=== PATIENT | male | born 1955 | race Caucasian/White ===

== ENCOUNTER 2023-11-30 12:04 | Inpatient (IN) | payer OTHER, MEDICARE ==
[~2023-11-30] VITALS: Ht 177.8 cm; Wt 86.6 kg
[2023-11-30] VITALS (41 sets, daily range): BP systolic 110–174; BP diastolic 46–131; PULSE 52–70; RESP 8–16; TEMP 97.5–97.7
[~2023-11-30 12:04] MED LIST: ALBUTEROL INH; AUGMENTIN PO; BENA10TA PO; LANTUSUD SUBCUT; P20 PO
[2023-11-30] MEDS ORDERED: CLONIDINE 0.2MG TABLET PO ONE (12:30)
[2023-11-30] MEDS: CLONIDINE 0.1MG TABLET PO SCH (12:36)
[2023-11-30 12:40] LABS: BASOPHILS % 0.7 % (0.0-2.0); EOSINOPHILS % 2.5 % (0.0-5.0); HEMATOCRIT. 41.3 % (42.0-52.0); HEMOGLOBIN. 14.3 g/dL (14.0-18.0); LYMPHOCYTES % 22.6 % (20.0-50.0); MEAN CORPUSCULAR HEMOGLOBIN 29.8 pg (28.0-32.0); MEAN CORPUSCULAR HGB CONC 34.5 g/dL (31.0-37.0); MEAN CORPUSCULAR VOLUME 86.4 fL (80.0-94.0); MEAN PLATELET VOLUME 7.2 fl (7.4-10.4); MONOCYTES % 5.1 % (2.0-8.0); NEUTROPHILS % 69.1 % (40.0-76.0); PLATELET 247 x1000/uL (130-400); RED BLOOD CELL COUNT 4.78 mill/uL (4.7-6.1); RED CELL DISTRIBUTION WIDTH 13.6 % (11.6-14.6); WHITE BLOOD COUNT 7.8 x1000/uL (4.5-11.0)
[2023-11-30 12:50] LABS: INR 0.9; PARTIAL THROMBOPLASTIN TIME 26.9 sec (23.4-31.0)
[2023-11-30 13:06] LABS: ALANINE AMINOTRANSFERASE 8 IU/L (10-49); ALBUMIN 4.5 g/dL (3.2-4.8); ASPARTATE AMINOTRANSFERASE 13 IU/L (<34); BILIRUBIN TOTAL 0.5 mg/dL (0.1-1.0); CALCIUM 9.1 mg/dL (8.7-10.4); CARBON DIOXIDE 30 mEq/L (21-32); CHLORIDE 104 mEq/L (98-107); CREATININE 1.9 mg/dL (0.6-1.3); GLUCOSE 292 mg/dL (70-105); PROTEIN TOTAL 7.9 g/dL (6.0-8.3); SODIUM 138 mEq/L (136-145); UREA NITROGEN BLOOD 26 mg/dL (9-23)
[2023-11-30 13:13] LABS: TROPONIN I HIGH SENSITIVITY 58 ng/L (3.0-53)
[2023-11-30 14:01] LABS: BETA HYDROXYBUTYRATE 0.5 mMol/L (0.0-0.3)
[2023-11-30] MEDS ORDERED: NICARDIPINE 100 MG in SODIUM CHLORIDE 0.9% 60 ML IV STA (14:13)
[2023-11-30] MEDS: LEVETIRACETAM 500MG PREMIX 100 ML IV ONE (14:23)
[2023-11-30] MEDS: DEXAMETHASONE 10 MG/ML VIAL IV ONE (14:28)
[2023-11-30] MEDS: NICARDIPINE 100 MG in SODIUM CHLORIDE 0.9% 60 ML IV NR (15:11)
[2023-11-30] MEDS ORDERED: METF-416 MT (15:58)
[2023-11-30] MEDS: DEXT 5%/LACTATED RINGERS 1,000 ML IV SCH (16:59)
[2023-11-30] MEDS: BLOOD SUGAR DIAGNOSTIC STRIP TEST SCH ×2 (16:59→23:12)
[2023-11-30] MEDS ORDERED: DEXTROSE 50% WATER 50ML SYRINGE IV PRN ×2 (17:00→23:15)
[2023-11-30] MEDS: DEXAMETHASONE 4MG/ML 1ML VIAL IV SCH (18:43)
[2023-11-30] MEDS: INSULIN LISPRO 100 UNITS/ML SUBCUT SCH ×2 (18:44→23:28)
[2023-11-30] MEDS ORDERED: PNEUMOCOCCAL 23-VAL P-SAC VAC 0.5 ML IM ONE (19:00)
[2023-11-30] MEDS ORDERED: IPRATROPIUM/ALBUTEROL 0.5-3(2.5)MG/3ML NEB HHN PRN (19:15)
[2023-11-30] MEDS ORDERED: ONDANSETRON HCL 4MG/2ML INJ IV PRN (19:15)
[2023-11-30] MEDS ORDERED: HYDRALAZINE 20MG/ML VIAL IV PRN (19:45)
[2023-11-30] MEDS: PANTOPRAZOLE SODIUM 40 MG/VIAL IV SCH (20:50)
[2023-11-30] MEDS ORDERED: INSULIN LISPRO 100 UNITS/ML SUBCUT SCH (21:00)
[2023-11-30] MEDS: LEVETIRACETAM 500MG PREMIX 100 ML IV SCH (21:34)
[2023-11-30 23:36] LABS: TROPONIN I HIGH SENSITIVITY 41 ng/L (3.0-53)
[2023-12-01] VITALS (89 sets, daily range): BP systolic 96–151; BP diastolic 51–102; PULSE 60–99; RESP 9–27; TEMP 97.4–98.3
[2023-12-01 01:55] LABS: CLARITY URINE CLEAR (CLEAR); COLOR URINE YELLOW (YELLOW); GLUCOSE URINE 3+ (NEGATIVE); KETONES URINE TRACE (NEGATIVE); LEUKOCYTE ESTERASE URINE NEGATIVE (NEGATIVE); NITRITE URINE NEGATIVE (NEGATIVE); OCCULT BLOOD URINE 1+ (NEGATIVE); PROTEIN URINE 3+ (NEGATIVE); SPECIFIC GRAVITY URINE 1.024 (1.005-1.030); UROBILINOGEN URINE 0.2 E.U./dL (0.2-1.0)
[2023-12-01 02:07] LABS: *AMPHETAMINES SCREEN URINE NEGATIVE (NEGATIVE); *BARBITURATES SCREEN URINE NEGATIVE (NEGATIVE); *BENZODIAZEPINES SCREEN URINE NEGATIVE (NEGATIVE); *COCAINE SCREEN URINE NEGATIVE (NEGATIVE); CANNABINOID URINE SCREEN NEGATIVE (NEGATIVE); ECSTASY MDMA SCREEN URINE NEGATIVE (NEGATIVE); METHADONE URINE SCREEN Neg (NEGATIVE); OPIATES URINE SCREEN NEGATIVE (NEGATIVE); PHENCYCLIDINE URINE SCREEN NEGATIVE (NEGATIVE)
[2023-12-01 05:06] LABS: HEMATOCRIT. 39.5 % (42.0-52.0); HEMOGLOBIN. 13.4 g/dL (14.0-18.0); MEAN CORPUSCULAR HEMOGLOBIN 29.9 pg (28.0-32.0); MEAN CORPUSCULAR VOLUME 87.9 fL (80.0-94.0); MEAN PLATELET VOLUME 7.8 fl (7.4-10.4); PLATELET 251 x1000/uL (130-400); RED CELL DISTRIBUTION WIDTH 13.4 % (11.6-14.6); WHITE BLOOD COUNT 12.4 x1000/uL (4.5-11.0)
[2023-12-01 05:13] LABS: SQUAMOUS EPITHELIAL CELL URINE NONE SEEN /lpf (RARE/1+)
[2023-12-01 05:15] LABS: BACTERIA URINE NONE SEEN
[2023-12-01 05:33] LABS: ALANINE AMINOTRANSFERASE < 7 IU/L (10-49); ALBUMIN 4.1 g/dL (3.2-4.8); ASPARTATE AMINOTRANSFERASE 12 IU/L (<34); BILIRUBIN DIRECT 0.1 mg/dL (<=3.0); BILIRUBIN TOTAL 0.4 mg/dL (0.1-1.0); CARBON DIOXIDE 25 mEq/L (21-32); CHLORIDE 105 mEq/L (98-107); CHOLESTEROL 309 mg/dL (<200); CREATINE KINASE 33 IU/L (46-171); CREATININE 2.2 mg/dL (0.6-1.3); GLUCOSE 368 mg/dL (70-105); HDL CHOLESTEROL 57 mg/dL (>55); LDL CHOLESTEROL 228 mg/dL (5-100); POTASSIUM 3.7 mEq/L (3.5-5.1); PROTEIN TOTAL 7.2 g/dL (6.0-8.3); SODIUM 137 mEq/L (136-145); T4 FREE 1.08 ng/dL (0.89-1.76); THYROID STIMULATING HORMONE 0.42 uIU/mL (0.55-4.78); TRIGLYCERIDE 102 mg/dL (0-150); TROPONIN I HIGH SENSITIVITY 52 ng/L (3.0-53); UREA NITROGEN BLOOD 36 mg/dL (9-23)
[2023-12-01 06:07] LABS: HEPATITIS B SURFACE ANTIGEN NEGATIVE (Negative); HEPATITIS C AB NON REACTIVE (Neg) (Negative)
[2023-12-01 06:28] LABS: DIFFERENTIAL COMMENT 1
[2023-12-01] MEDS ORDERED: INSULIN LISPRO 100 UNITS/ML SUBCUT SCH ×2 (07:00)
[2023-12-01] MEDS: PANTOPRAZOLE SODIUM 40 MG/VIAL IV SCH (11:57)
[2023-12-01 12:39] LABS: PLATELET ESTIMATE NORMAL
[2023-12-01] MEDS ORDERED: PNEUMOCOCCAL 23-VAL P-SAC VAC 0.5 ML IM ONE (20:00)
[2023-12-01] MEDS ORDERED: INFLUENZA VACCINE 05/PF 0.5 ML SYRINGE IM ONE (20:00)
[2023-12-01] MEDS: ATORVASTATIN CALCIUM 40MG TABLET PO SCH (20:19)
[2023-12-01] MEDS: NICARDIPINE 100 MG in SODIUM CHLORIDE 0.9% 60 ML IV PRN (21:17)
[2023-12-01] MEDS: INSULIN GLARGINE 100 UNITS/ML SUBCUT SCH (21:21)
[2023-12-02] VITALS (46 sets, daily range): BP systolic 113–158; BP diastolic 50–109; PULSE 60–88; RESP 9–20; TEMP 97.5–98.2
[2023-12-02 05:37] LABS: HEMATOCRIT 37.4 % (42.0-52.0); MEAN CORPUSCULAR HEMOGLOBIN 30.3 pg (28.0-32.0); MEAN CORPUSCULAR HGB CONC 34.7 g/dL (31.0-37.0); MEAN CORPUSCULAR VOLUME 87.5 fL (80.0-94.0); PLATELET 245 x1000/uL (130-400); RED BLOOD CELL COUNT 4.27 mill/uL (4.7-6.1); RED CELL DISTRIBUTION WIDTH 13.6 % (11.6-14.6)
[2023-12-02 05:57] LABS: CALCIUM 8.9 mg/dL (8.7-10.4); CREATININE 2.3 mg/dL (0.6-1.3); POTASSIUM 3.8 mEq/L (3.5-5.1)
[2023-12-02] MEDS ORDERED: HYDRALAZINE 20MG/ML VIAL IV PRN (10:00)
[2023-12-02] MEDS: BENAZEPRIL 10MG TABLET PO SCH (11:41)
[2023-12-02] MEDS: INSULIN LISPRO 100 UNITS/ML SUBCUT SCH (11:41)
[2023-12-02] MEDS ORDERED: HYDRALAZINE 10 MG in SODIUM CHLORIDE 0.9% 49.5 ML IV PRN (14:00)
[2023-12-03] VITALS: BP 130/50; PULSE 64; RESP 20; TEMP 98.5
[2023-12-03 04:00] VITALS: BP 118/53; PULSE 63; RESP 19; TEMP 97.8
[2023-12-03 07:50] LABS: CALCIUM 8.5 mg/dL (8.7-10.4); CARBON DIOXIDE 27 mEq/L (21-32); CHLORIDE 104 mEq/L (98-107); CREATININE 2.1 mg/dL (0.6-1.3); GLUCOSE 250 mg/dL (70-105); PHOSPHORUS 3.3 mg/dL (2.5-4.9); SODIUM 137 mEq/L (136-145); UREA NITROGEN BLOOD 38 mg/dL (9-23)
[2023-12-03 07:53] LABS: HEMATOCRIT 41.7 % (42.0-52.0); MEAN CORPUSCULAR HEMOGLOBIN 29.6 pg (28.0-32.0); MEAN CORPUSCULAR HGB CONC 33.5 g/dL (31.0-37.0); MEAN CORPUSCULAR VOLUME 88.3 fL (80.0-94.0); PLATELET 290 x1000/uL (130-400); RED BLOOD CELL COUNT 4.72 mill/uL (4.7-6.1); RED CELL DISTRIBUTION WIDTH 13.5 % (11.6-14.6); WHITE BLOOD COUNT 25.1 x1000/uL (4.5-11.0)
[2023-12-03 08:00] VITALS: BP 124/51; PULSE 64; RESP 18; TEMP 96.9
[2023-12-03 12:00] VITALS: BP 179/71; PULSE 67; RESP 19; TEMP 97.8
[2023-12-03 16:00] VITALS: BP 158/70; PULSE 67; RESP 18; TEMP 96.6
[2023-12-03 20:00] VITALS: BP 153/70; PULSE 70; RESP 18; TEMP 97.5
[2023-12-03] MEDS: HYDRALAZINE HCL 25MG TABLET PO SCH (20:21)
[2023-12-04] VITALS: BP 155/63; PULSE 62; RESP 19; TEMP 97.7
[2023-12-04 04:00] VITALS: BP 164/74; PULSE 64; RESP 18; TEMP 97.5
[2023-12-04] MEDS: CLONIDINE 0.1MG TABLET PO PRN (06:04)
[2023-12-04 07:03] LABS: HEMATOCRIT 38.7 % (42.0-52.0); HEMOGLOBIN 13.2 g/dL (14.0-18.0); MEAN CORPUSCULAR HGB CONC 34.1 g/dL (31.0-37.0); MEAN CORPUSCULAR VOLUME 88.2 fL (80.0-94.0); PLATELET 236 x1000/uL (130-400); RED BLOOD CELL COUNT 4.38 mill/uL (4.7-6.1); RED CELL DISTRIBUTION WIDTH 13.7 % (11.6-14.6); WHITE BLOOD COUNT 15.3 x1000/uL (4.5-11.0)
[2023-12-04 07:26] LABS: CALCIUM 8.6 mg/dL (8.7-10.4); CREATININE 1.8 mg/dL (0.6-1.3); POTASSIUM 3.9 mEq/L (3.5-5.1)
[2023-12-04 08:00] VITALS: BP 156/65; PULSE 60; RESP 17; TEMP 97
[2023-12-04] MEDS: FAMOTIDINE 20MG/2ML VIAL IV SCH (09:21)
[2023-12-04 14:36] VITALS: BP 152/57; PULSE 62; TEMP 96.8; O2SAT 97
[2023-12-04] MEDS ORDERED: HYDRALAZINE HCL 50MG TABLET PO SCH (21:00)
[2023-12-04] MEDS ORDERED: LEVETIRACETAM 500MG TABLET PO SCH (21:00)
[2023-12-04] MEDS ORDERED: DEXAMETHASONE 4MG/ML 1ML VIAL IV SCH (21:00)
== END 2023-12-04 15:24 | disposition home or self-care (01) | DRG 65 ==
LOC: ER 12:04 → EDBEDREQ 12:18 → MICUSO 14:37 → EDBEDREQSVC 14:39 → EDBEDREQ 14:39 → EDBEDREQTM 14:39 → 6EST 12-02 13:27
PROVIDERS: ADMIT Hospitalist; ATTEND Hospitalist
DX: I62.9 Nontraumatic intracranial hemorrhage, unspecified (principal); N17.9 Acute kidney failure, unspecified; R47.81 Slurred speech; E05.90 Thyrotoxicosis, unspecified without thyrotoxic crisis or storm; E11.21 Type 2 diabetes mellitus with diabetic nephropathy; N18.31 Chronic kidney disease, stage 3a; E11.22 Type 2 diabetes mellitus with diabetic chronic kidney disease; I12.9 Hypertensive chronic kidney disease with stage 1 through stage 4 chronic kidney disease, or unspecified chronic kidney disease; E78.00 Pure hypercholesterolemia, unspecified; Z86.73 Personal history of transient ischemic attack (TIA), and cerebral infarction without residual deficits; Z89.422 Acquired absence of other left toe(s); Z79.899 Other long term (current) drug therapy
CPT/HCPCS: 36415; 71045; 76770; 80048; 80053; 80061; 80076; 80305; 81003; 82010; 82550; 82962; 83036; 83605; 83735; 83880; 83930; 84100; 84145; 84439; 84443; 84484; 85025; 85027; 86705; 87340; 93005; 93970; 97162; 97166; 97535; 99291; A6261; C9113; J1100; J1815; J1953; J3490; J7050; J7121